=== PATIENT | female | born 1990 | race Caucasian/White ===

== ENCOUNTER → 2023-06-23 | Emergency (ER) | payer BC ==
[~2023-06-23] MED LIST: hydrOXYzine HCL 25 MG TAB ONE; predniSONE 20 MG TAB ONE
--- OUTSIDE RECORDS SUMMARY | 2023-06-23 02:25 | XMS REPORT | Continuity of Care Document ---
Author Name Unknown Address [address] [facility] [address] [place] [address] [facility] thconnect Address [address] [facility] [address] [place] [address] Care Team Providers Care Improvement Lead Name Role Phone Pcp, Patient Does Not Have A Primary Care Physic kyrie CHRSEDA_Haris Attending Clinician Unavailable RADHA Attending Clinician Unavaila prakash FUNG Attending Clinician Unavailable Alicia Jain Attending Clinician [phone] Digna Hodges Attending Clinician [phone] Doctor Unassigned, [place] Attending Clinician U navailable SAMIA Admitting Clinician Unavailable RADHA Admitting Clinician Unavaila prakash FUNG Admitting Clinician Unavailable Payers Payer Name Policy Type Policy Number Effective Date Expirati on Date Source [place] [id number] 2018 00:00:00 Problems Condition Name Condition Details Condition Category Status Onset Date Resolution Date Last Treatment Date Treating Clinician Comments Source Acute pharyngiti s Acute Pharyngiti s Problem Active 09-02 00:00: 00 [facility] Nausea Nausea Problem Active 09-02 00:00: 00 [facility] Body mass index 25-29 - overweight Body Mass Index 25-29 - Overweight Problem Active 12-06 00:00: 00 [facility] Depressive disorder Depressive Disorder Problem Active 12-06 00:00: 00 [facility] Malaise Malaise Problem Active 8 00:00: 00 [facility] Anxiety Anxiety Problem Active 06-16 00:00: 00 [facility] Chronic depression Chronic Depression Problem Active 06-16 00:00: 00 [facility] Allergies, Adverse Reactions, Alerts Allergy Name Allergy Type Status Severity Reaction(s) Onset Date Inactive Date Treating Clinician Comments Source NO KNOWN ALLERGIE S Drug Class Active [facility] Social History Social Habit Start Date Stop Date Quantity Comments Source [facility] to SARS-CoV-2 (event) 2019-10-13 00:00:00 2019-11-12 11:14:00 Yes [facility] Tobacco use and exposure 2018-06-13 00:00:00 2018-06-13 00:00:00 Smokeless tobacco non-user [facility] Sex Assigned At 1990 00:00:00 1990 00:00:00 [facility] Smoking Status Start Date Stop Date Source Never Smoker [facility] Medications Ordered Medication Name Filled Medication Name Start Date Stop Date Current Medication? Ordering Clinician Indication Dosage Frequency Signature (SIG) Comments Components Source SERTraline 50 mg tablet 10-20 00:00: 00 Yes 50mg Take 50 mg by mouth. [facility] etonogestre l 0.12 mg-ethinyl estradiol 0.015 mg/24 hr vaginal ring 1 RING INSERT FOR 3 WEEKS, REMOVE FOR 1 WEEK VAGINAL 90 etonogestre l 0.12 mg-ethinyl estradiol 0.015 mg/24 hr vaginal ring 1 RING INSERT FOR 3 WEEKS, REMOVE FOR 1 WEEK VAGINAL 90 No etonogestr el 0.12 mg-ethinyl estradiol 0.015 mg/24 hr vaginal ring 1 RING INSERT FOR 3 WEEKS, REMOVE FOR 1 WEEK VAGINAL 90 [facility] Zoloft 25 mg tablet Take 1 tablet every day by oral route. Zoloft 25 mg tablet Take 1 tablet every day by oral route. No 1 Q1D Zoloft 25 mg tablet Take 1 tablet every day by oral route. [facility] ivermectin 3 mg tablet Take 2 tablets twice a day by oral route. ivermectin 3 mg tablet Take 2 tablets twice a day by oral route. No 2 BID ivermectin 3 mg tablet Take 2 tablets twice a day by oral route. [facility] prednisone 20 mg tablet Take 1 tablet twice a day by oral route for 5 days. prednisone 20 mg tablet Take 1 tablet twice a day by oral route for 5 days. No 1 BID prednisone 20 mg tablet Take 1 tablet twice a day by oral route for 5 days. [facility] sertraline 25 mg tablet TAKE 1 TABLET BY MOUTH EVERY DAY sertraline 25 mg tablet TAKE 1 TABLET BY MOUTH EVERY DAY No sertraline 25 mg tablet TAKE 1 TABLET BY MOUTH EVERY DAY [facility] azithromyci n 500 mg tablet Take 1 tablet every day by oral route for 5 days. azithromyci n 500 mg tablet Take 1 tablet every day by oral route for 5 days. No 1 Q1D azithromyc in 500 mg tablet Take 1 tablet every day by oral route for 5 days. [facility] Vital Signs Vital Name Observation Time Observation Value Comments S ource BP Diastolic 2022-09-02 00:00:00 68 mm[Hg] [facility] Height 2022-09-02 00:00:00 62 [in_i] [facility] BMI (Body Mass Index) 2022-09-02 00:00:00 24.2 kg/m2 [facility] BP Systolic 2022-09-02 00:00:00 111 mm[Hg] [facility] Body Weight 2022-09-02 00:00:00 2115.2 [oz_av] [facility] BP Diastolic 2020-09-13 00:00:00 81 mm[Hg] [facility] Height 2020-09-13 00:00:00 62 [in_i] [facility] BMI (Body Mass Index) 2020-09-13 00:00:00 30.5 kg/m2 [facility] BP Systolic 2020-09-13 00:00:00 135 mm[Hg] [facility] Body Weight 2020-09-13 00:00:00 2665.6 [oz_av] [facility] BP Diastolic 2020-07-26 00:00:00 76 mm[Hg] [facility] Height 2020-07-26 00:00:00 62 [in_i] [facility] BMI (Body Mass Index) 2020-07-26 00:00:00 30.2 kg/m2 [facility] BP Systolic 2020-07-26 00:00:00 122 mm[Hg] [facility] Body Weight 2020-07-26 00:00:00 2643.2 [oz_av] [facility] Plan of Care Planned Activity Planned Date Details Comments Source Diagnostic Test Pending 2022-09-02 00:00:00 rapid SARS CoV 2 Ag, QL IA, respiratory specimen [code = rapid SARS CoV 2 Ag, QL IA, respiratory specimen] [facility] Diagnostic Test Pending 2022-09-02 00:00:00 rapid strep group A, throat [code = rapid strep group A, throat] [facility] Instructions [facility] Encounters Start Date/Time End Date/Time Encounter Type Admission Type Attending Clinicians Care Facility Care Department Encounter ID Source 2022-11-23 00:00:00 2022-11-23 00:00:00 Outpatient CHRETIEN_F [facility] [id number] [facility] 2022-10-18 00:00:00 2022-10-18 00:00:00 Outpatient CHRETIEN_[facility] [id number] [facility] 2022-09-24 00:00:00 2022-09-24 00:00:00 Outpatient CHRETIEN_[facility] [id number] [facility] 2022-09-23 00:00:00 2022-09-23 00:00:00 Outpatient CHRETIEN_[facility] [id number] [facility] 2022-09-13 00:00:00 2022-09-13 00:00:00 Outpatient CHRETIEN_[facility] [id number] [facility] 2022-09-02 00:00:00 2022-09-02 00:00:00 Outpatient CHRETIEN_[facility] [id number] [facility] 2022-09-02 00:00:00 2022-09-02 00:00:00 Catalina Westfall APRN-FLIGHT LINE MECHANIC-B C: [address], [address] [address] , Ph. [facility] [id number] [facility] 2021-11-12 00:00:00 2021-11-12 00:00:00 Outpatient [facility] [id number] [facility] 2021-08-13 09:15:00 2021-08-13 09:15:00 Outpatient CHRETIEN_F [facility] [id number] [facility] 2020-09-13 03:01:00 2020-09-13 03:01:00 Outpatient SCHAUBROECK _L [facility] [id number] [facility] 2020-09-13 00:00:00 2020-09-13 00:00:00 Alicia Jain APRN-TABLET TESTER-C: [address], [address], [place] [address] , Ph. [facility] [id number] [facility] 2020-09-13 00:00:00 2020-09-13 00:00:00 Outpatient Alicia Jain [facility] [id number] 2020-08-11 01:03:00 2020-08-11 01:03:00 Outpatient SCHAUBROECK _L [facility] [id number] [facility] 2020-07-26 02:59:00 2020-07-26 02:59:00 Outpatient SCHAUBROECK _L [facility] [id number] [facility] 2020-07-26 00:00:00 2020-07-26 00:00:00 Digna higginbotham, [facility]-: [address] [place] [address], [address], [place] [address] , Ph. [facility] [id number] [facility] 2020-07-26 00:00:00 2020-07-26 00:00:00 Outpatient Digna Hodges Marie [facility] [id number] 2020-07-12 04:35:00 2020-07-12 04:35:00 Outpatient SCHAUBROECK _L [facility] [id number] [facility] 2020-07-12 04:35:00 2020-07-12 04:35:00 Outpatient SCHAUBROECK _L [facility] [id number] [facility] 2019-11-13 00:00:00 2019-11-13 00:00:00 Patient Secure Msg Doctor Unassigned, [place] [facility] [id number] [facility] 2019-11-12 11:20:00 2019-11-12 11:20:00 Outpatient R [facility] [id number] [facility]
--- NOTE | 2023-06-23 02:38 | EDPHYS ---
Physician Documentation [facility] Name: Jacqueline Garcia Age: 33 yrs Sex: Female : 1990 Arrival Date: 06/23/2023 Time: 02:21 Bed IW6 Private MD: ED Physician Armen Saenz HPI: 06/22 02:38 This 33 yrs old Unknown Female presents to ER via Unassigned with complaints of Rash. ms3 02:38 33-year-old female with no past medical history presents to the emergency department ms3 for rash that has been ongoing for 10 days. Patient states she began itching on Friday and developed a rash on Friday. Patient saw her nurse practitioner was placed on oral steroids, given steroid cream. Patient states his symptoms are better when applying a cold compress. Patient denies inciting factors. TOE TRIMMER: 02:45 LMP 06/02/2023, unknown km8 Historical: - Allergies: 02:56 No Known Allergies; km8 - Home Meds: 02:55 None [Active]; km8 - PMHx: 02:55 None; km8 - PSHx: 02:55 None; km8 - Immunization history:: Client reports receiving the 2nd dose of the Covid vaccine, Flu vaccine is not up to date. - Social history:: Smoking status: Patient denies any tobacco usage or history of. Patient uses alcohol, occasionally. Patient/guardian denies using street drugs. ROS: 02:38 Constitutional: Negative for fever, and chills. Neck: Negative for injury, pain, and ms3 swelling, Cardiovascular: Negative for chest pain, and palpitations. Respiratory: Negative for shortness of breath, cough, wheezing, and pleuritic chest pain, Abdomen/GI: Negative for abdominal pain, nausea, vomiting, diarrhea, and constipation, MS/Extremity: Negative for injury and deformity, 02:38 Skin: Positive for rash, Exam: 02:38 Constitutional: This is a well developed, well nourished patient who is awake, alert, ms3 and in no acute distress. Head/Face: Normocephalic, atraumatic. Cardiovascular: Regular rate and rhythm with a normal S1 and S2. No gallops, murmurs, or rubs. Normal PMI, no JVD. No pulse deficits. Respiratory: Lungs have equal breath sounds bilaterally, clear to auscultation and percussion. No rales, rhonchi or wheezes noted. No increased work of breathing, no retractions or nasal flaring. Abdomen/GI: Soft, non-tender, with normal bowel sounds. No distension or tympany. No guarding or rebound. No evidence of tenderness throughout. 02:38 Skin: contact dermatitis, on the Bilateral legs, Vital Signs: 02:45 BP 138 / 89; Pulse 69; Resp 16; Temp 98.4(TE); Pulse Ox 100% on R/A; Pain 7/10; km8 02:45 Pain Scale: Adult km8 [place] Coma Score: 02:45 Eye Response: spontaneous(4). Motor Response: obeys commands(6). Verbal Response: km8 oriented(5). Total: 15. MDM: 02:37 Patient medically screened. ms3 02:38 Differential diagnosis: Contact dermatitis. Data reviewed: vital signs, nurses notes, ms3 and as a result, I will discharge patient. I considered the following discharge prescriptions or medication management in the emergency department Medications were administered in the Emergency Department. See MAR. Counseling: I had a detailed discussion with the patient and/or guardian regarding the historical points, exam findings, and any diagnostic results supporting the discharge/admit diagnosis, the need for outpatient follow up, to return to the emergency department if symptoms worsen or persist or if there are any questions or concerns that arise at home. Special discussion: I discussed with the patient/guardian in detail that at this point there is no indication for admission to the hospital. It is understood, however, that if the symptoms persist or worsen the patient needs to return immediately for re-evaluation. ED course: Discussed physical exam findings with patient. Patient to follow-up with primary care provider in 2 to 3 days. Patient understands and agrees with plan. All questions were answered. Prednisone 40 mg daily and Atarax prescription given. Prednisone prescription given in addition to patient's current prescription of 20 mg daily. Return precautions discussed include worsening symptoms, or any other concerns.. Administered Medications: 02:49 Drug: predniSONE PO 40 mg PO once Route: PO; vc1 02:56 Follow up: Response: Medication administered at discharge. km8 02:49 Drug: hydrOXYzine PO 25 mg PO once Route: PO; vc1 02:56 Follow up: Response: Medication administered at discharge. km8 Disposition Summary: 06/23/23 02:37 Discharge Ordered Notes: Location: Home ms3 Condition: Stable ms3 Diagnosis - Allergic contact dermatitis, unspecified cause ms3 Followup: ms3 - With: Ian Irene DO - When: 2 - 3 days - Reason: Recheck today's complaints Discharge Instructions: - Discharge Summary Sheet ms3 - Contact Dermatitis ms3 Forms: - Medication Reconciliation Form ms3 - Thank You Letter ms3 - Antibiotic Education ms3 - Prescription Opioid Use ms3 - Patient Portal Instructions ms3 - Leadership Thank You Letter ms3 Prescriptions: - Hydroxyzine HCl 25 mg Oral Tablet - take 1 tablet ORAL route every 6 hours As needed; 12 tablet; Refills: 0, ms3 Product Selection Permitted - Prednisone 20 mg Oral Tablet - take 2 tablets ORAL route once daily for 5 days; 10 tablet; Refills: 0, Product ms3 Selection Permitted Signatures: Armen Saenz DO DO ms3 Fior López RN RN vc1 Suzan White RN RN km8
--- NOTE | 2023-06-23 03:04 | ER ---
Nurse's Notes [facility] Name: Jacqueline Garcia Age: 33 yrs Sex: Female : 1990 Arrival Date: 06/23/2023 Time: 02:21 Bed IW6 Private MD: Diagnosis: Allergic contact dermatitis, unspecified cause Presentation: 06/22 02:45 Chief complaint: Patient states: rash to BLE for 1 week; itchy in nature; taking km8 steroids 20mg now and given steroid shot previously. Coronavirus screen: Client denies travel out of the [place] in the last 14 days. Ebola Screen: No symptoms or risks identified at this time. Initial Sepsis Screen: Does the patient meet any 2 criteria? No. Patient's initial sepsis screen is negative. Does the patient have a suspected source of infection? No. Patient's initial sepsis screen is negative. Risk Assessment: Do you want to hurt yourself or someone else? Patient reports no desire to harm self or others. Onset of symptoms was June 16, 2023. 02:45 Method Of Arrival: Ambulatory km8 02:45 Acuity: SAVI 4 km8 Triage Assessment: 02:45 General: Appears in no apparent distress. Behavior is calm, cooperative, appropriate km8 for age. Pain: Complains of pain in right leg and left leg Pain currently is 7 out of 10 on a pain scale. EENT: No signs and/or symptoms were reported regarding the EENT system. Neuro: Level of Consciousness is awake, alert, obeys commands, Oriented to person, place, time, situation. Cardiovascular: Denies chest pain, shortness of breath, Patient's skin is warm and dry. Respiratory: Airway is patent Respiratory effort is even, unlabored, Respiratory pattern is regular, symmetrical. GI: No signs and/or symptoms were reported involving the gastrointestinal system. : No signs and/or symptoms were reported regarding the genitourinary system. Derm: Skin is intact, is healthy with good turgor, Skin is dry, Skin is normal, Skin temperature is warm Rash noted that is itchy, on right leg and left leg. Musculoskeletal: No signs and/or symptoms reported regarding the musculoskeletal system. Range of motion: intact in all extremities. SERVICES MGR: 02:45 LMP 06/02/2023, unknown km8 Historical: - Allergies: 02:56 No Known Allergies; km8 - Home Meds: 02:55 None [Active]; km8 - PMHx: 02:55 None; km8 - PSHx: 02:55 None; km8 - Immunization history:: Client reports receiving the 2nd dose of the Covid vaccine, Flu vaccine is not up to date. - Social history:: Smoking status: Patient denies any tobacco usage or history of. Patient uses alcohol, occasionally. Patient/guardian denies using street drugs. Screenin:45 [facility] ED Fall Risk Assessment (Adult) History of falling in the last 3 months, km8 including since admission No falls in past 3 months (0 pts) Confusion or Disorientation No (0 pts) Intoxicated or Sedated No (0 pts) Impaired Gait No (0 pts) Mobility Assist Device Used No (0 pt) Altered Elimination No (0 pt) Score/Fall Risk Level 0 - 2 = Low Risk Oriented to surroundings, Maintained a safe environment, Educated pt \T\ family on fall prevention, incl call for assistance when getting out of bed, Assessed \T\ reinforced patient's understanding of fall precautions. Abuse screen: Denies threats or abuse. Denies injuries from another. Nutritional screening: No deficits noted. Tuberculosis screening: No symptoms or risk factors identified. Assessment: 02:45 Reassessment: see triage assessment/notes. km8 Vital Signs: 02:45 BP 138 / 89; Pulse 69; Resp 16; Temp 98.4(TE); Pulse Ox 100% on R/A; Pain 7/10; km8 02:45 Pain Scale: Adult km8 [place] Coma Score: 02:45 Eye Response: spontaneous(4). Motor Response: obeys commands(6). Verbal Response: km8 oriented(5). Total: 15. ED Course: 02:25 Patient arrived in ED. gm2 02:28 Armen Saenz DO is Attending Physician. ms3 02:36 Ian Irene DO is Referral Physician. ms3 02:45 Arm band placed on right wrist. km8 02:45 Patient has correct armband on for positive identification. km8 02:45 No provider procedures requiring assistance completed. Patient did not have IV access km8 during this emergency room visit. 02:53 Triage completed. km8 02:56 Provided Education on: d/c teaching. km8 Administered Medications: 02:49 Drug: predniSONE PO 40 mg PO once Route: PO; vc1 02:56 Follow up: Response: Medication administered at discharge. km8 02:49 Drug: hydrOXYzine PO 25 mg PO once Route: PO; vc1 02:56 Follow up: Response: Medication administered at discharge. km8 Medication: 02:45 VIS not applicable for this client. km8 Outcome: 02:37 Discharge ordered by MD. ms3 02:55 Discharged to home ambulatory, km8 02:55 Condition: good 02:55 Discharge instructions given to patient, Instructed on discharge instructions, follow up and referral plans. medication usage, Demonstrated understanding of instructions, follow-up care, medications, Prescriptions given X 2, 03:03 Patient left the ED. km8 Signatures: Armen Saenz, DO ms3 Fior López RN RN vc1 Miranda Godwin gm2 Suzan White RN RN km8
[2023-06-23 03:41] VITALS: BP 138/89; TEMP 98.4; O2SAT 100
== END ==
LOC: ER 02:21
DX: L23.9 Allergic contact dermatitis, unspecified cause (principal)
CPT/HCPCS: 99283; J7512